=== PATIENT | male | born 2000 ===

== ENCOUNTER 2021-08-29 12:23 | Day surgery (SDC) | payer SELFPAY | END 2021-08-29 14:10 | disposition home or self-care (01) | LOC: CSHSDC/OP 12:23 | PROVIDERS: ATTEND Internal Medicine Endocrinology, Diabetes & Metabolism | DX: Z23 Encounter for immunization (principal); U07.1 COVID-19 | CPT/HCPCS: 96365; J3490; M0243; Q0244 ==